=== PATIENT | male | born 1985 | race Caucasian/White ===

== ENCOUNTER 2017-06-12 00:42 | Emergency (ER) | payer OTHER ==
[2017-06-12 01:16] LABS: Basophils # (A) 0.1 k/uL (0-0.2); Basophils % (A) 1 %; CH 31.7; CHCM 33.6; Eosinophils # (A) 0.4 k/uL (0-0.7); Eosinophils % (A) 4 %; HCT 47.1 % (39.0-53.0); HGB 15.3 gm/dL (13.0-17.5); Luc # (Auto) 0.18; Luc % (Auto) 2; Lymphocytes # (A) 2.2 k/uL (1.0-4.8); Lymphocytes % (A) 23 %; MCH 30.8 pg (25.0-35.0); MCHC 32.5 g/dL (31.0-37.0); MCV 94.9 fL (80.0-100.0); Mean Platelet Volume 7.2; Monocytes # (A) 0.5 k/uL (0-1.0); Monocytes % (A) 6 %; Neutrophils # (A) 6.4 k/uL (1.3-7.7); Neutrophils % (A) 65 %; RBC 4.96 m/uL (4.30-5.90); RDW 13.7 % (11.5-15.5); WBC 9.8 k/uL (3.8-10.6); WBC (Perox) 9.85
[2017-06-12 01:24] LABS: ALT 37 U/L (21-72); AST 24 U/L (17-59); Alkaline Phosphatase 88 U/L (38-126); Anion Gap 8 mmol/L; Blood Urea Nitrogen 12 mg/dL (9-20); Calcium 9.1 mg/dL (8.4-10.2); Carbon Dioxide 23 mmol/L (22-30); Chloride 109 mmol/L (98-107); Glucose 107 mg/dL (74-99); Non-African American GFR(MDRD) >60 (>60 ml/min/1.73 sqM); Potassium 4.1 mmol/L (3.5-5.1); Sodium 140 mmol/L (137-145); Total Bilirubin 0.4 mg/dL (0.2-1.3); Total Protein 7.1 g/dL (6.3-8.2)
[2017-06-12 01:33] LABS: Creatine Kinase 119 U/L (55-170)
[2017-06-12 01:36] LABS: INR 1.1 (<1.2); Partial Thromboplastin Time 22.9 sec (22.0-30.0); Prothrombin Time 11.2 sec (9.0-12.0)
[2017-06-12] MEDS ORDERED: KETOROLAC 30 MG/ML 1 ML VIAL IVP STA (01:40)
[2017-06-12 01:46] LABS: Creatine Kinase MB 0.4 ng/mL (0.0-2.4); Troponin I <0.012 ng/mL (0.000-0.034)
--- NOTE | 2017-06-12 02:13 | XR ---
EXAMINATION TYPE: XR chest 2V DATE OF EXAM: 06/12/2017 COMPARISON: NONE HISTORY: Hypertension chest pain TECHNIQUE: Frontal and lateral views of the chest are obtained. FINDINGS: Heart and mediastinum are normal. Lungs are clear. Diaphragm is normal. Bony thorax appear s normal. IMPRESSION: Normal chest
[2017-06-12 02:42] VITALS: RESP 18
--- NOTE | 2017-06-12 03:00 | ED ---
Chest Pain HPI - General Chief Complaint: Chest Pain Stated Complaint: chest pain Time Seen by Provider: 06/12/17 00:58 Source: patient, EMS, RN notes reviewed, old records reviewed Mode of arrival: EMS Limitations: no limitations - History of Present Illness Initial Comments: 31-year-old male recently diagnosed with hypertension presents emergency department with one day have chest pain. Your ports that he woke up to have the chest pain. He states that he was getting ready for bed this evening and felt somewhat lightheaded, is why called the ambulance and brought him here. You receive nitro prior to arriving from EMS. Your part is just painted feel somewhat better at that time.Patient relates that he's also had a cough since starting lisinopril. Your ports that his primary care provider roof related that was from allergies. Patient denies any nausea or vomiting or shortness of breath this time. Denies any preferred paresthesias. He does have a family history of heart disease, he's a non-smoker.We should also realize that he's been increasingly anxious over the past few weeks. - Related Data Allergies Allergy/AdvReac Type Severity Reaction Status Date / Time No Known Allergies Allergy Verified 06/12/17 01:04 Review of Systems ROS Statement: Those systems with pertinent positive or pertinent negative responses have been documented in the HPI. ROS Other: All systems not noted in ROS Statement are negative. EKG Findings - EKG Comments: EKG Findings:: EKG was reviewed in with the normal limits.No ST elevation or T- wave inversion. No atrial or ventricular arrhythmias. Past Medical History Past Medical History: Hypertension History of Any Multi-Drug Resistant Organisms: None Reported Past Surgical History: Hernia Repair Past Psychological History: No Psychological Hx Reported Smoking Status: Never smoker Past Alcohol Use History: Occasional Past Drug Use History: None Reported General Exam - General Exam Comments Initial Comments: Well appearing at 31-year-old male. No acute distress. Limitations: no limitations General appearance: alert, in no apparent distress Head exam: Present: atraumatic, normocephalic, normal inspection Eye exam: Present: normal appearance, PERRL, EOMI. Absent: scleral icterus, conjunctival injection, periorbital swelling ENT exam: Present: normal exam, mucous membranes moist Neck exam: Present: normal inspection. Absent: tenderness, meningismus, lymphadenopathy Respiratory exam: Present: normal lung sounds bilaterally. Absent: respiratory distress, wheezes, rales, rhonchi, stridor Cardiovascular Exam: Present: regular rate, normal rhythm, normal heart sounds. Absent: systolic murmur, diastolic murmur, rubs, gallop, clicks GI/Abdominal exam: Present: soft, normal bowel sounds. Absent: distended, tenderness, guarding, rebound, rigid Extremities exam: Present: normal inspection, full ROM, normal capillary refill. Absent: tenderness, pedal edema, joint swelling, calf tenderness Back exam: Present: normal inspection Neurological exam: Present: alert, oriented X3, CN II-XII intact Psychiatric exam: Present: normal affect, normal mood Course Vital Signs 06/12/17 06/12/17 06/12/17 00:45 02:41 03:13 Temperature 98.2 F 97.5 F L Pulse Rate 93 93 71 Respiratory 16 18 18 Rate Blood Pressure 150/88 129/81 131/80 O2 Sat by Pulse 98 100 98 Oximetry - Reevaluation(s) Reevaluation #1: 06/12/17 02:59 is reevaluated reports this chest pain is diminished. Patient likes to be discharged home. Offered admission but states that he would like to go home follow up with primary care provider. Chest Pain [facility] This is a 31-year-old male presents emergency apartment with chest pain for one day. But having some episodes for the past week. Patient's EKG was reviewed to be normal. As negative cardiac enzymes. Chest x-ray was normal. He also is concerned because of a cough related to the new blood pressure medicine lisinopril. As primary care provider and find a newHypertensive agent. Discussed that he is suffering from anxiety. Discussed that this could be the result of his chest pain. I did offer the patient admission for further evaluation, but patient states he would like to go home and follow up with his primary care provider. Discussed of this is acceptable as he has had no changes within his troponin are you KG given the many hours of the chest pain.We shall be given a referral to primary care provider in his inspector chief. Return parameters were discussed. Disposition Clinical Impression: Chest pain Disposition: HOME SELF-CARE Condition: Good Instructions: Chest Pain (ED) Additional Instructions: Patient advised to follow-up with your primary care provider, return to the emergency department occur. Discontinue hypertensive medicine until seen by primary care physician in regards to further medicine management. Patient could possibly use metoprolol for your blood pressure. Referrals: Nonstaff,Physician [Primary Care Provider] - 1-2 days Yolande Petersen MD [STAFF PHYSICIAN] - 1-2 days Dany Isbell MD [STAFF PHYSICIAN] - 1-2 days Valeriano Grey MD [STAFF PHYSICIAN] - 1-2 days Time of Disposition: 02:58
[2017-06-12 03:14] VITALS: BP 131/80; PULSE 71; TEMP 97.5
== END 2017-06-12 03:13 | disposition home or self-care (01) ==
LOC: EC 00:42
DX: R07.9 Chest pain, unspecified (principal); R42 Dizziness and giddiness; R05 Cough; I10 Essential (primary) hypertension
CPT/HCPCS: 36415; 93005; 80053; 82550; 82553; 83735; 84484; 85025; 85610; 85730; 71020; 99285; 96374; J1885

== ENCOUNTER → 2023-03-14 | Outpatient (CLI) | payer OTHER ==
--- NOTE | 2023-03-14 17:52 | CT ---
EXAMINATION TYPE: CT abdomen pelvis wo con DATE OF EXAM: 03/14/2023 COMPARISON: none HISTORY: Lower abdominal pain x 1.[address] DLP: 945 mGycm Examination of the solid and hollow viscera is limited given the lack of contrast. FINDINGS: LUNG BASES: No evidence for nodule. No evidence for infiltrate. LIVER/GB: The gallbladder is unremarkable. No space-occupying hepatic lesion. PANCREAS: No pancreatic mass identified. No inflammatory process seen. SPLEEN: No evidence for splenomegaly. No intrasplenic lesions seen. ADRENALS: No adrenal nodules identified. No evidence for thickening. KIDNEYS: No evidence for renal mass. No nephrolithiasis. No hydronephrosis. BOWEL: Appendix has a normal appearance. No evidence of bowel obstruction. No inflammatory process. Lymph nodes: No evidence for adenopathy greater than 1 cm. Abdominal aorta: Atheromatous changes seen. No evidence for aneurysm. Genital organs: No significant abnormality. Other: No significant abnormality. IMPRESSION: NO DISCRETE ABNORMALITY APPRECIATED.
== END | disposition home or self-care (01) ==
LOC: RADCTMAIN 17:09
PROVIDERS: ATTEND Family Medicine
DX: R10.2 Pelvic and perineal pain (principal)
CPT/HCPCS: 74176

== ENCOUNTER 2023-04-02 18:40 | Emergency (ER) | payer OTHER ==
--- NOTE | 2023-04-02 20:06 | ED ---
General Adult HPI - General Chief complaint: Recheck/Abnormal Lab/Rx Stated complaint: allergic reaction to medication Time Seen by Provider: 04/02/23 20:05 Source: patient Mode of arrival: ambulatory Limitations: no limitations - History of Present Illness Initial comments: Patient presents to the ED complaining of having diffuse myalgias and feeling fa tigued. 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 Patient states that he has been on Cipro for the past 2-3 days, and he is unsure if the Cipro is what is causing him to feel this way. Patient states that he did complete a ten-day course of Cipro in the recent past without any of the symptoms that he is experiencing currently. Patient states that he has had burning dysuria, and that is why he is being treated for a prostate infection. Patient also states that he feels anxious. Patient denies fever or chills, headache, focal neuro deficit, chest pain or pressure, dyspnea, cough or cold symptoms, palpitations, dizziness, abdominal pain, flank pain, nausea or vomiting, diarrhea or constipation, hematuria, or any other symptoms or complaints. - Related Data Allergies Allergy/AdvReac Type Severity Reaction Status Date / Time sulfamethoxazole Allergy Rash/Hives Verified 04/02/23 18:52 [From Bactrim] trimethoprim [From Bactrim] Allergy Rash/Hives Verified 04/02/23 18:52 Review of Systems ROS Statement: Those systems with pertinent positive or pertinent negative responses have been documented in the HPI. ROS Other: All systems not noted in ROS Statement are negative. Past Medical History Past Medical History: Hypertension History of Any Multi-Drug Resistant Organisms: None Reported Past Surgical History: Hernia Repair Past Psychological History: No Psychological Hx Reported Smoking Status: Never smoker Past Alcohol Use History: Occasional Past Drug Use History: None Reported General Exam Limitations: no limitations General appearance: alert Eye exam: Present: normal appearance ENT exam: Present: mucous membranes moist Respiratory exam: Present: normal lung sounds bilaterally. Absent: respiratory distress, wheezes, rales, rhonchi, stridor Cardiovascular Exam: Present: normal rhythm, tachycardia, normal heart sounds, other (Normal radial pulses bilaterally) GI/Abdominal exam: Present: soft. Absent: distended, tenderness, guarding Extremities exam: Absent: tenderness, pedal edema, calf tenderness Back exam: Absent: CVA tenderness (R), CVA tenderness (L) Neurological exam: Present: alert, oriented X3 Psychiatric exam: Present: anxious Skin exam: Present: warm, dry, intact, normal color Course Vital Signs 04/02/23 04/02/23 18:48 20:04 Temperature 98.4 F 98.2 F Pulse Rate 102 H 112 H Respiratory 20 18 Rate Blood Pressure 136/98 170/111 O2 Sat by Pulse 99 99 Oximetry Medical Decision Making - Medical Decision Making Was pt. sent in by a medical professional or institution (TANI Hughes, SPECIAL DELIVERY CARRIER, urgent care, hospital, or long term...) When possible be specific @ -No Did you speak to anyone other than the patient for history (EMS, parent, family, police, friend...)? What history was obtained from this source @ -No Did you review nursing and triage notes (agree or disagree)? Why? @ -I reviewed and agree with nursing and triage notes Were old charts reviewed (outside hosp., previous admission, EMS record, old EKG, old radiological studies, urgent care reports/EKG's, long term records)? Report findings @ -No old charts were reviewed Differential Diagnosis (chest pain, altered mental status, abdominal pain women, abdominal pain men, vaginal bleeding, weakness, fever, dyspnea, syncope, headache, dizziness, GI bleed, back pain, seizure, CVA, palpatations, mental health, musculoskeletal)? @ -Myalgias, medication reaction, fatigue, viral illness, prostatitis, UTI, infection, anxiety, electrolyte abnormality, dehydration, hypoglycemia, hyperglycemia EKG interpreted by me (3pts min.). @ -None done X-rays interpreted by me (1pt min.). @ -None done CT interpreted by me (1pt min.). @ -None done U/S interpreted by me (1pt. min.). @ -None done What testing was considered but not performed or refused? (CT, X-rays, U/S, labs)? Why? @ -None What meds were considered but not given or refused? Why? @ -None Did you discuss the management of the patient with other professionals (blaise lindo i.e. TANI Hughes, SPECIAL DELIVERY CARRIER, lab, RT, psych nurse, social service director, production graphic designer, teacher, credit control officer, pillowcase cutter)? Give summary @ -No Was smoking cessation discussed for >3mins.? @ -No Was critical care preformed (if so, how long)? @ -No Were there social determinants of health that impacted care today? How? (Homelessness, low income, unemployed, alcoholism, drug addiction, transportation, low edu. Level, literacy, decrease access to med. care, [facility], rehab)? @ -No Was there de-escalation of care discussed even if they declined (Discuss DNR or withdrawal of care, Hospice)? DNR status @ -No What co-morbidities impacted this encounter? (DM, HTN, Smoking, COPD, CAD, Cancer, CVA, ARF, Chemo, Hep., AIDS, mental health diagnosis, sleep apnea, morbid obesity)? @ -None Was patient admitted / discharged? Hospital course, mention meds given and route, prescriptions, significant lab abnormalities, going to OR and other pertinent info. @ -Patient reports improvement in his myalgias with the ibuprofen that he was given in the ED. Patient denies development of any new symptoms while in the ED. Patient's labs are fairly unremarkable. She is afebrile. I do not suspect an emergent medical condition at this time. Will discharge patient home at this time. Patient was counseled about myalgias and fatigue, and he was clearly explained return and follow-up instructions. Patient was instructed to follow up closely with his primary care provider. Patient feels comfortable with this plan. Undiagnosed new problem with uncertain prognosis? @ -No Drug Therapy requiring intensive monitoring for toxicity (Heparin, Nitro, Insulin, Cardizem)? @ -No Were any procedures done? @ -No Diagnosis/symptom? @ -Myalgias and fatigue Acute, or Chronic, or Acute on Chronic? @ -Acute Uncomplicated (without systemic symptoms) or Complicated (systemic symptoms)? @ -default Side effects of treatment? @ -No Exacerbation, Progression, or Severe Exacerbation? @ -No Poses a threat to life or bodily function? How? (Chest pain, [place], [place], pneumonia, PE, COPD, DKA, ARF, appy, cholecystitis, CVA, Diverticulitis, Homicidal, Suicidal, threat to staff... and all critical care pts) @ -No] - Lab Data Result diagrams: 04/02/23 20:12 04/02/23 20:12 Lab Results 04/02/23 04/02/23 04/02/23 Range/Units 20:12 20:12 22:20 WBC 11.9 H (3.8-10.6) k/uL RBC 5.62 (4.30-5.90) m/uL Hgb 17.9 H (13.0-17.5) gm/dL Hct 51.9 (39.0-53.0) % MCV 92.3 (80.0-100.0) fL MCH 31.9 (25.0-35.0) pg MCHC 34.6 (31.0-37.0) g/dL RDW 12.4 (11.5-15.5) % Plt Count 299 (150-450) k/uL MPV 7.3 Neutrophils % 78 % Lymphocytes % 14 % Monocytes % 6 % Eosinophils % 1 % Basophils % 0 % Neutrophils # 9.3 H (1.3-7.7) k/uL Lymphocytes # 1.7 (1.0-4.8) k/uL Monocytes # 0.7 (0-1.0) k/uL Eosinophils # 0.1 (0-0.7) k/uL Basophils # 0.0 (0-0.2) k/uL Sodium 140 (137-145) mmol/L Potassium 4.2 (3.5-5.1) mmol/L Chloride 103 (98-107) mmol/L Carbon Dioxide 24 (22-30) mmol/L Anion Gap 13 mmol/L BUN 8 L (9-20) mg/dL Creatinine 0.98 (0.66-1.25) mg/dL Est GFR (CKD-EPI)AfAm >90 (>60 ml/min/1.73 sqM) Est GFR (CKD-EPI)NonAf >90 (>60 ml/min/1.73 sqM) Glucose 110 H (74-99) mg/dL Calcium 10.1 (8.4-10.2) mg/dL Creatine Kinase 80 (55-170) U/L Urine Color Light Yellow Urine Appearance Clear (Clear) Urine pH 6.5 (5.0-8.0) Ur Specific [place] 1.010 (1.001-1.035) Urine Protein Negative (Negative) Urine Glucose (UA) Negative (Negative) Urine Ketones 1+ H (Negative) Urine Blood Negative (Negative) Urine Nitrite Negative (Negative) Urine Bilirubin Negative (Negative) Urine Urobilinogen <2.0 (<2.0) mg/dL Ur Leukocyte Esterase Negative (Negative) Disposition Clinical Impression: Generalized muscle ache, Fatigue Disposition: HOME SELF-CARE Condition: Stable Instructions (If sedation given, give patient instructions): Musculoskeletal Pain (ED), Fatigue (ED) Additional Instructions: Return to the ER immediately should you develop new or worsening pain, a fever, shortness of breath, feeling dizzy or faint, or new or worsening symptoms. Follow up closely with your primary care provider. Is patient prescribed a controlled substance at d/c from ED?: No Referrals: George Olmedo MD [Primary Care Provider] - 1-2 days Time of Disposition: 22:43
[2023-04-02] MEDS ORDERED: IBUPROFEN 600 MG TAB PO STA (20:09)
[2023-04-02 20:12] VITALS: RESP 18
[2023-04-02 20:27] LABS: Basophils % (A) 0 %; Eosinophils # (A) 0.1 k/uL (0-0.7); Eosinophils % (A) 1 %; HCT 51.9 % (39.0-53.0); HGB 17.9 gm/dL (13.0-17.5); Lymphocytes # (A) 1.7 k/uL (1.0-4.8); Lymphocytes % (A) 14 %; MCH 31.9 pg (25.0-35.0); MCHC 34.6 g/dL (31.0-37.0); MCV 92.3 fL (80.0-100.0); Mean Platelet Volume 7.3; Monocytes # (A) 0.7 k/uL (0-1.0); Monocytes % (A) 6 %; Neutrophils # (A) 9.3 k/uL (1.3-7.7); Neutrophils % (A) 78 %; Platelet Count 299 k/uL (150-450); RBC 5.62 m/uL (4.30-5.90); RDW 12.4 % (11.5-15.5); WBC 11.9 k/uL (3.8-10.6)
[2023-04-02 20:39] LABS: African American GFR (CKD) >90 (>60 ml/min/1.73 sqM); Anion Gap 13 mmol/L; Blood Urea Nitrogen 8 mg/dL (9-20); Calcium 10.1 mg/dL (8.4-10.2); Carbon Dioxide 24 mmol/L (22-30); Chloride 103 mmol/L (98-107); Creatine Kinase 80 U/L (55-170); Glucose 110 mg/dL (74-99); Non-African American GFR(CKD) >90 (>60 ml/min/1.73 sqM); Potassium 4.2 mmol/L (3.5-5.1); Sodium 140 mmol/L (137-145)
[2023-04-02 22:29] LABS: Appearance,Urine Clear (Clear); Bilirubin,Urine Negative (Negative); Blood,Urine Negative (Negative); Color,Urine Light Yellow; Glucose,Urine (UA) Negative (Negative); Ketones,Urine 1+ (Negative); Leukocyte Esterase,Urine Negative (Negative); Nitrite,Urine Negative (Negative); PH, Urine 6.5 (5.0-8.0); Protein,Urine Negative (Negative); Urobilinogen,Urine <2.0 mg/dL (<2.0)
[2023-04-02 22:49] VITALS: BP 151/99; PULSE 98; TEMP 98.6
== END 2023-04-02 22:51 | disposition home or self-care (01) ==
LOC: EC 18:40
DX: M79.10 Myalgia, unspecified site (principal); R53.83 Other fatigue; I10 Essential (primary) hypertension; Z88.2 Allergy status to sulfonamides; Z88.1 Allergy status to other antibiotic agents
CPT/HCPCS: 36415; 80048; 81003; 82550; 85025; 99283

== ENCOUNTER → 2023-05-10 | Outpatient (CLI) | payer OTHER ==
--- NOTE | 2023-05-10 22:28 | US ---
EXAMINATION TYPE: US scrotum with doppler. Grayscale and color Doppler Duplex imaging performed of t he scrotum. 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 There is no evidence of testicular torsion. Presence of hydroceles: N Presence of varicoceles: Left Left testicle appears smaller and has dilated vessels within IMPRESSION: 1. No acute testicular ultrasound abnormality.
== END | disposition home or self-care (01) ==
LOC: RADUSWWP 13:22
PROVIDERS: ATTEND Family Medicine
DX: Q53.10 Unspecified undescended testicle, unilateral (principal)
CPT/HCPCS: 76870; 93975

== ENCOUNTER → 2024-07-04 | Outpatient (CLI) | payer OTHER ==
--- NOTE | 2024-07-04 10:00 | US ---
EXAMINATION TYPE: US abdomen complete DATE OF EXAM: 07/04/2024 COMPARISON: CT 2022 CLINICAL INDICATION: Male, 38 years old with history of R10.9 UNSPECIFIED ABDOMINAL PAIN; TECHNIQUE: Grayscale and color Doppler imaging of the abdomen was performed. FINDINGS: EXAM MEASUREMENTS: Liver Length: 14.6 cm Gallbladder Wall: 0.14 cm CBD: 0.32 cm, color Doppler imaging was utilized to isolate the common bile duct for measurement. Spleen: 11.0 x 11.0 x 5.3 cm Right Kidney: 10.8 x 6.6 x 5.1 cm Left Kidney: 10.7 x 6.1 x 4.8 cm EMPLOYMENT EDUCATIONAL COORD NOTES: Pancreas: Tail obscured by overlying bowel gas Liver: wnl Gallbladder: wnl Evidence for sonographic Lyn's sign: No CBD: wnl Spleen: wnl Right Kidney: No hydronephrosis or masses seen Left Kidney: No hydronephrosis or masses seen Upper IVC: wnl Abd Aorta: wnl IMPRESSION: No abnormality identified. [facility], , 07/04/2024 9:58 AM
== END | disposition home or self-care (01) ==
LOC: RADUSWWP 06:51
PROVIDERS: ATTEND Family Medicine
DX: R10.9 Unspecified abdominal pain (principal)
CPT/HCPCS: 76700